=== PATIENT | female | born 1945 | race Caucasian/White ===

== ENCOUNTER 2021-08-04 14:03 | Emergency (ER) | payer MEDICARE, OTHER ==
[~2021-08-04] VITALS: Ht 165.1 cm; Wt 64.9 kg
[2021-08-04 14:47] VITALS: BP 144/74
[2021-08-04] MEDS ORDERED: MORPHINE SULFATE 4 MG/ML SYR IVP ONE (15:25)
[2021-08-04] MEDS ORDERED: ONDANSETRON 4 MG/2 ML VIAL IVP ONE (15:25)
--- NOTE | 2021-08-04 16:13 | NUR ---
TAKEN TO IMAGING
--- NOTE | 2021-08-04 16:25 | NUR ---
78 Y/O F BIBA FROM HOME, C/O BLURRY VISION SINCE 08/01/21. PT STATES SHE HAS GONE TO OPTHALMOLOGIST. NO SIGNIFICANT FINDINGS. PT STATES VISION HAS GOTTEN WORSE, LAST NIGHT PT STATES SHE SAW "DARK [place]" IN VISION, NO LONGER HAS THAT NOW. DENIES N/V/D OR TAI. PT IS A&OX4, AMBULATES, PERRLA 2MM PINPOINT. PMH: HTN, "TORN R KNEE MUSCLE", ASTHMA ALLERGY: IODINE, SULFA MED: LOSARTAN, CARDEVIOL, NORCO
--- NOTE | 2021-08-04 18:49 | NUR ---
PER ERMD PT RIGHT ARM WAS PLACE INTO A SLING.
[2021-08-04] MEDS ORDERED: OXYC-304 PO (19:07)
[2021-08-04] MEDS ORDERED: IBUP200C97 PO (19:07)
[2021-08-04] MEDS ORDERED: ACET-6763 PO (19:09)
[2021-08-04] MEDS ORDERED: HYDROcodone/APAP 5/325 MG 1 TAB TAB PO ONE (19:15)
[2021-08-04 19:28] VITALS: BP 144/74
== END 2021-08-04 19:17 | disposition home or self-care (01) ==
LOC: MED 14:03
DX: S32.019A Unspecified fracture of first lumbar vertebra, initial encounter for closed fracture (principal); S32.029A Unspecified fracture of second lumbar vertebra, initial encounter for closed fracture; S22.32XA Fracture of one rib, left side, initial encounter for closed fracture; S42.291A Other displaced fracture of upper end of right humerus, initial encounter for closed fracture; E11.9 Type 2 diabetes mellitus without complications; I10 Essential (primary) hypertension; E78.5 Hyperlipidemia, unspecified; W10.0XXA Fall (on)(from) escalator, initial encounter; Y93.89 Activity, other specified; Y92.520 Airport as the place of occurrence of the external cause; Y99.8 Other external cause status
CPT/HCPCS: 70450; 72125; 72128; 72131; 72192; 73030; 73060; 96374; 96375; 99285; J2270; J2405